=== PATIENT | female | born 1975 | race Caucasian/White ===

== ENCOUNTER 2019-11-12 14:24 | Outpatient (CLI) | payer SELFPAY ==
[2019-11-12 14:51] LABS: Basophils Percent Auto 0.5 % (0.2-1.2); Eosinophils Percent Auto 0.2 % (0-4.4); Hematocrit 41.5 % (37.0-47.0); Hemoglobin 13.5 g/dL (12.0-15.0); Immature Granulocyte Absolute 0.03 K/mm3 (0.00-0.031); Immature Granulocyte Percent A 0.4 % (0-0.5); Lymphocytes Absolute Auto 1.55 K/mm3 (0.9-3.2); Lymphocytes Percent Auto 18.6 % (18.3-44.2); Mean Corpuscular HGB Conc 32.5 g/dl (32-36); Mean Corpuscular Hemoglobin 29.7 pg (26-34); Mean Corpuscular Volume 91.4 fl (80-100); Mean Platelet Volume 9.3 fl (7.4-10.4); Monocytes Absolute Auto 0.9 K/mm3 (0.1-0.6); Neutrophils Absolute Auto 5.8 K/mm3 (1.3-6.7); Neutrophils Percent Auto 69.3 % (45.5-73.1); Platelet Count Result 315 k/mm3 (150-375); Red Blood Count 4.54 M/mm3 (4.2-5.4); Red Cell Distribution Width 12.8 % (11.5-14.5); White Blood Count 8.4 K/mm3 (4.5-10.0)
[2019-11-12 15:13] LABS: Alanine Aminotransferase 31 U/L (4-35); Albumin Level 4.6 g/dL (3.5-5.1); Alkaline Phosphatase 109 U/L (38-126); Aspartate Amino Transferase 34 U/L (14-36); Bilirubin,Total 0.4 mg/dL (0.2-1.3); Blood Urea Nitrogen 14 mg/dL (7-17); Calcium 9.9 mg/dL (8.4-10.2); Carbon Dioxide 25 mmol/L (22-30); Chloride 102 mmol/L (98-107); Estimated Glomerular Filt Rate > 60; Glucose 94 mg/dL (65-105); Sodium 139 mmol/L (137-145)
[2019-11-12 15:21] LABS: Potassium 3.8 mmol/L (3.4-5.0)
[2019-11-12 16:11] LABS: Folic Acid 15.4 ng/mL (2.76->20)
== END 2019-11-12 14:25 | disposition home or self-care (01) ==
PROVIDERS: PCP Internal Medicine; Visit Provider Psychiatry & Neurology Neurology
DX: G90.09 Other idiopathic peripheral autonomic neuropathy (principal)
CPT/HCPCS: 36415; 80053; 82607; 82746; 84443; 85025; 86038

== ENCOUNTER 2024-09-30 19:20 | Emergency (ER) | payer OTHER, SELFPAY ==
--- NOTE | ~2024-09-30 | CT_ITS ---
EXAMINATION: CTA chest PE abdomen pel DATE: 09/30/2024 20:43 GUEST SERVICE AGENT INDICATION: Right-sided back/chest/shoulder pain with nausea for which pulmonary embolus is suspected clinically. COMPARISON: Right upper quadrant ultrasound performed at less than 30 minutes earlier with negative r esults TECHNIQUE: Computed tomographic angiography (CTA) of the chest was performed, along with multiple con tiguous axial images of the abdomen and pelvis with 100 mL Omnipaque-350 intravenous contrast. The do se-length product was 1423.02 mGy-cm. Maximum intensity projection 3D-reconstructions of the aorta an d other arteries were constructed by the technologist on a separate workstation. FINDINGS/OBSERVATIONS: PULMONARY ARTERIES: No filling defect is identified within the main or proximal pulmonary artery. The main pulmonary artery is not enlarged. THORACIC AORTA: No aneurysmal dilatation or dissection is present. The great vessels are intact. LUNGS: The lungs are clear. MEDIASTINUM: No morphologically suspicious or pathologically enlarged lymph nodes are identified with in the mediastinum or bilateral axilla. BONES OF THE CHEST: No acute fracture. No significant degenerative disease. No lytic or blastic lesions. HEART: The heart is of normal size, without pericardial effusion. LIVER: The liver enhances homogeneously and is not enlarged measuring 17 cm in longitudinal dimension. GALLBLADDER AND BILIARY SYSTEM: The gallbladder is only minimally distended, and otherwise unremarkable. PANCREAS: The pancreas enhances homogeneously without ductal dilatation. SPLEEN: The spleen enhances homogeneously and is not enlarged measuring 4 cm in longitudinal dimension. KIDNEYS: The bilateral kidneys enhance symmetrically without significant hydronephrosis or renal calculi. Well-circumscribed rounded focus of decreased attenuation within the upper pole of the left kidney me asuring 16 mm in greatest dimension. This too small to characterize, but likely a simple cyst ADRENAL GLANDS: Unremarkable. GASTROINTESTINAL TRACT: Trace fecal stasis within the colon. APPENDIX: The air-filled appendix is of normal caliber (axial series, image 97) VASCULATURE: Unremarkable. No aneurysmal dilatation or significant stenosis. LYMPH NODES: No pathologically enlarged or morphologically suspicious lymph nodes within the retroperitoneum or at the root of the mesentery. PELVIC STRUCTURES: The bladder is significantly distended, and otherwise unremarkable. Anteverted and anteflexed, and otherwise unremarkable. BODY WALL AND MUSCULOSKELETAL: No significant degenerative disease within the lower thoracic or lumbosacral spine. IMPRESSION: No pulmonary embolus. No aortic dissection. The lungs are clear. No acute pathology is identified within the abdomen or pelvis, as detailed above. Reviewed, dictated and finalized at location A. T SERVICE AGENT IMPRESSION: No pulmonary embolus. No aortic dissection. The lungs are clear. No acute pathology is identified within the abdomen or pelvis, as detailed abov e.
--- NOTE | ~2024-09-30 | US_ITS ---
EXAM: ABDOMEN ULTRASOUND HISTORY: Right upper quadrant pain COMPARISON: None FINDINGS: LIVER: The liver demonstrates coarse echogenicity. The portal vein is patent demonstrating hepatopedal flow. GALLBLADDER: The gallbladder is only minimally distended, but otherwise unremarkable. No gallbladder wall thickening or pericholecystic fluid. BILE DUCTS: Common bile duct measures 2.9mm. PANCREAS: Limited evaluation of the pancreas secondary to overlying bowel gas IMPRESSION: Coarse echogenicity within the liver, a nonspecific finding. Otherwise unremarkable sonographic evaluation of the right upper quadrant, as detailed above. Reviewed, dictated and finalized at location A. ARY MEDIA TECHNICIAN IMPRESSION: Coarse echogenicity within the liver, a nonspecific finding. Otherwise unremarkable sonographic evaluation of the right upper quadrant, as d etailed above.
[2024-09-30 19:23] VITALS: BP 150/83; PULSE 108; RESP 15; TEMP 36.4; O2SAT 100
[2024-09-30] MEDS: SODIUM CHLORIDE 0.9% IV 1,000 ML 999 ML IV CONT (19:49)
[2024-09-30] MEDS: ONDANSETRON INJ 4 MG/2 ML VIAL IV PUSH (19:50)
[2024-09-30 19:54] LABS: Basophils Percent Auto 0.5 % (0.2-1.2); Eosinophils Absolute Auto 0.1 K/mm3 (0-0.3); Eosinophils Percent Auto 0.8 % (0-4.4); Hematocrit 42.9 % (37.0-47.0); Hemoglobin 14.1 g/dL (12.0-15.0); Immature Granulocyte Absolute 0.03 K/mm3 (0.00-0.031); Immature Granulocyte Percent A 0.4 % (0-0.5); Lymphocytes Absolute Auto 1.98 K/mm3 (0.9-3.2); Lymphocytes Percent Auto 25.5 % (18.3-44.2); Mean Corpuscular HGB Conc 32.9 g/dl (32-36); Mean Corpuscular Hemoglobin 30.8 pg (26-34); Mean Corpuscular Volume 93.7 fl (80-100); Mean Platelet Volume 9.2 fl (7.4-10.4); Monocytes Percent Auto 12.9 % (2.6-8.5); Neutrophils Absolute Auto 4.7 K/mm3 (1.3-6.7); Neutrophils Percent Auto 59.9 % (45.5-73.1); Platelet Count Result 280 k/mm3 (150-375); Red Blood Count 4.58 M/mm3 (4.2-5.4); Red Cell Distribution Width 12.3 % (11.5-14.5); White Blood Count 7.8 K/mm3 (4.5-10.0)
[2024-09-30 20:08] LABS: Alanine Aminotransferase 40 U/L (6-35); Alkaline Phosphatase 149 U/L (38-126); Anion Gap 11 mmol/L (4-12); Aspartate Amino Transferase 47 U/L (14-36); Bilirubin,Total 0.5 mg/dL (0.2-1.3); Blood Urea Nitrogen 19 mg/dL (7-17); Carbon Dioxide 28 mmol/L (22-30); Chloride 98 mmol/L (98-107); Estimated CRCL calculation 82 ml/min; Estimated Glomerular Filt Rate > 60; Glucose 90 mg/dL (65-110); Lipase 101 U/L (23-300); Magnesium 1.9 mg/dL (1.6-2.3); Potassium 3.4 mmol/L (3.4-5.0); Sodium 137 mmol/L (137-145)
--- NOTE | 2024-09-30 20:15 | ED.GENADULT ---
HPI - General Adult General Chief complaint: Chest Pain Stated complaint: Right shoulder to back pain Time Seen by Provider: 09/30/24 19:31 History of Present Illness HPI narrative: Patient 49-year-old female who presents emergency department with chief complaint of right-sided chest and right upper quadrant pain. The patient reports that she has been at work today and started having discomfort in the right side of her chest radiating to her back the patient reports he also had pain in the right upper quadrant reports that she had a similar episode recently and was told that she might have problems with her gallbladder. The patient also reports she has prior family history of potential blood clot to the lungs. The patient reports that she has no personal history of DVT or PE the patient reports that the sensation made her feel very anxious and felt as though she could not get a good deep breath. Related Data Allergies Allergy/AdvReac Type Severity Reaction Status Date / Time No Known Allergies Allergy Mild Verified 09/30/24 19:22 Review of Systems Review of Systems: A 10 system review of systems was completed on the patient and is negative except for what is stated in the HPI. Nursing and ancillary documentation was reviewed. [facility] Social History Social History Social History: never smoker Smoking status: Never smoker Alcohol intake: current Drinks per week: 1 Exam Narrative: GENERAL: Well-appearing, well-nourished, and in no acute distress. HEAD: Normocephalic, atraumatic. EYES: PERRLA and EOMI. ENT: Nares clear, no rhinorrhea or epistaxis. Mucous membranes moist. NECK: Supple. CHEST: Clear to auscultation. No respiratory distress. HEART: Regular rate and rhythm. No murmur heard. Normal peripheral pulses. ABDOMEN: Soft, mild tenderness to palpation in right upper quadrant, nondistended, normal active bowel sounds. EXTREMITIES: Normal range of motion. No edema. SKIN: Warm, dry, no rash. NEURO: No focal deficits. Alert and oriented x3. PSYCH: Normal mood and affect. Course Vital Signs Vital signs: Vital Signs Temperature 36.4 C 09/30/24 19:23 Pulse Rate 108 H 09/30/24 19:23 Respiratory Rate 15 09/30/24 19:23 Blood Pressure 150/83 H 09/30/24 19:23 Pulse Oximetry 100 09/30/24 19:23 Oxygen Delivery Room Air 09/30/24 19:23 Temperature 36.4 C 09/30/24 19:23 Pulse Rate 108 H 09/30/24 19:23 Respiratory Rate 15 09/30/24 19:23 Blood Pressure 150/83 H 09/30/24 19:23 Pulse Oximetry 100 09/30/24 19:23 Oxygen Delivery Room Air 09/30/24 19:23 Medical Decision Making MDM Narrative Medical decision making narrative: Differential diagnosis includes biliary colic, PE, ACS Given the patient's family history for pulmonary embolism a PE study was ordered. Patient did have tenderness to palpation the right upper quadrant a gallbladder ultrasound was obtained as well as a CT scan included abdomen pelvis laboratory studies did show a slight elevation of the transaminases with an AST of 47 and ALT of 40 alk phos was 149 bilirubin was normal at 0.5 lipase was normal at 101 CTA chest with abdomen pelvis showed No pulmonary embolus. No aortic dissection. The lungs are clear. No acute pathology is identified within the abdomen or pelvis, as detailed above. Gallbladder ultrasound showed Coarse echogenicity within the liver, a nonspecific finding. Otherwise unremarkable sonographic evaluation of the right upper quadrant, as detailed above. Vital Signs Vital Signs: Vital Signs Temperature 36.4 C 09/30/24 19:23 Pulse Rate 108 H 09/30/24 19:23 Respiratory Rate 15 09/30/24 19:23 Blood Pressure 150/83 H 09/30/24 19:23 Pulse Oximetry 100 09/30/24 19:23 Oxygen Delivery Room Air 09/30/24 19:23 Temperature 36.4 C 09/30/24 19:23 Pulse Rate 108 H 09/30/24 19:23 Respiratory Rate 15 09/30/24 19:23 Blood Pressure 150/83 H 09/30/24 19:23 Pulse Oximetry 100 09/30/24 19:23 Oxygen Delivery Room Air 09/30/24 19:23 Lab Data 09/30/24 19:47 09/30/24 19:47 Labs: Lab Results 09/30/24 09/30/24 09/30/24 Range/Units 19:47 19:47 19:47 WBC 7.8 (4.5-10.0) K/mm3 RBC 4.58 (4.2-5.4) M/mm3 Hgb 14.1 (12.0-15.0) g/dL Hct 42.9 (37.0-47.0) % MCV 93.7 (80-100) fl MCH 30.8 (26-34) pg MCHC 32.9 (32-36) g/dl RDW 12.3 (11.5-14.5) % Plt Count 280 (150-375) k/mm3 MPV 9.2 (7.4-10.4) fl Immature Gran % (Auto) 0.4 (0-0.5) % Neut % (Auto) 59.9 (45.5-73.1) % Lymph % (Auto) 25.5 (18.3-44.2) % [place] % (Auto) 12.9 H (2.6-8.5) % Eos % (Auto) 0.8 (0-4.4) % Baso % (Auto) 0.5 (0.2-1.2) % Lymph # (Auto) 1.98 (0.9-3.2) K/mm3 [place] # (Auto) 1.0 H (0.1-0.6) K/mm3 Eos # (Auto) 0.1 (0-0.3) K/mm3 Baso # (Auto) 0.0 (0.0-0.1) K/mm3 Abs Immat Gran (auto) 0.03 (0.00-0.031) K/mm3 Absolute Neuts (auto) 4.7 (1.3-6.7) K/mm3 Absolute Nucleated RBC 0.000 (0.0-0.012) K/mm3 Nucleated RBC % 0.0 (0.0-0.2) % Sodium Cancelled 137 Potassium Cancelled 3.4 Chloride Cancelled Carbon Dioxide Anion Gap BUN Creatinine Estim Creat Clear Calc Estimated GFR Glucose Calcium Magnesium (1.6-2.3) mg/dL Total Bilirubin AST ALT Alkaline Phosphatase Troponin I (0.000-0.034) ng/mL NT-Pro-B Natriuret Pep Total Protein Albumin Lipase Urine Color (Yellow) Urine Appearance (Clear) Urine pH (5.0-9.0) Ur Specific [place] (1.001-1.035) Urine Protein (Negative) mg/dL Urine Glucose (UA) (Negative) mg/dL Urine Ketones (Negative) mg/dL Ur Blood (Man) (Negative) Urine Nitrate (Negative) Urine Bilirubin (Negative) Urine Urobilinogen (<2.0) mg/dL Leukocyte Esterase Rfl (Negative) GABRIEL/UL 09/30/24 09/30/24 09/30/24 Range/Units 19:47 19:47 19:47 WBC (4.5-10.0) K/mm3 RBC (4.2-5.4) M/mm3 Hgb (12.0-15.0) g/dL Hct (37.0-47.0) % MCV (80-100) fl MCH (26-34) pg MCHC (32-36) g/dl RDW (11.5-14.5) % Plt Count (150-375) k/mm3 MPV (7.4-10.4) fl Immature Gran % (Auto) (0-0.5) % Neut % (Auto) (45.5-73.1) % Lymph % (Auto) (18.3-44.2) % [place] % (Auto) (2.6-8.5) % Eos % (Auto) (0-4.4) % Baso % (Auto) (0.2-1.2) % Lymph # (Auto) (0.9-3.2) K/mm3 [place] # (Auto) (0.1-0.6) K/mm3 Eos # (Auto) (0-0.3) K/mm3 Baso # (Auto) (0.0-0.1) K/mm3 Abs Immat Gran (auto) (0.00-0.031) K/mm3 Absolute Neuts (auto) (1.3-6.7) K/mm3 Absolute Nucleated RBC (0.0-0.012) K/mm3 Nucleated RBC % (0.0-0.2) % Sodium Potassium Chloride 98 Carbon Dioxide Cancelled 28 Anion Gap Cancelled 11 BUN Cancelled Creatinine Estim Creat Clear Calc Estimated GFR Glucose Calcium Magnesium (1.6-2.3) mg/dL Total Bilirubin AST ALT Alkaline Phosphatase Troponin I (0.000-0.034) ng/mL NT-Pro-B Natriuret Pep Total Protein Albumin Lipase Urine Color (Yellow) Urine Appearance (Clear) Urine pH (5.0-9.0) Ur Specific [place] (1.001-1.035) Urine Protein (Negative) mg/dL Urine Glucose (UA) (Negative) mg/dL Urine Ketones (Negative) mg/dL Ur Blood (Man) (Negative) Urine Nitrate (Negative) Urine Bilirubin (Negative) Urine Urobilinogen (<2.0) mg/dL Leukocyte Esterase Rfl (Negative) GABRIEL/UL 09/30/24 09/30/24 09/30/24 Range/Units 19:47 19:47 19:47 WBC (4.5-10.0) K/mm3 RBC (4.2-5.4) M/mm3 Hgb (12.0-15.0) g/dL Hct (37.0-47.0) % MCV (80-100) fl MCH (26-34) pg MCHC (32-36) g/dl RDW (11.5-14.5) % Plt Count (150-375) k/mm3 MPV (7.4-10.4) fl Immature Gran % (Auto) (0-0.5) % Neut % (Auto) (45.5-73.1) % Lymph % (Auto) (18.3-44.2) % [place] % (Auto) (2.6-8.5) % Eos % (Auto) (0-4.4) % Baso % (Auto) (0.2-1.2) % Lymph # (Auto) (0.9-3.2) K/mm3 [place] # (Auto) (0.1-0.6) K/mm3 Eos # (Auto) (0-0.3) K/mm3 Baso # (Auto) (0.0-0.1) K/mm3 Abs Immat Gran (auto) (0.00-0.031) K/mm3 Absolute Neuts (auto) (1.3-6.7) K/mm3 Absolute Nucleated RBC (0.0-0.012) K/mm3 Nucleated RBC % (0.0-0.2) % Sodium Potassium Chloride Carbon Dioxide Anion Gap BUN 19 H Creatinine Cancelled 0.78 Estim Creat Clear Calc Cancelled 82 Estimated GFR Cancelled Glucose Calcium Magnesium (1.6-2.3) mg/dL Total Bilirubin AST ALT Alkaline Phosphatase Troponin I (0.000-0.034) ng/mL NT-Pro-B Natriuret Pep Total Protein Albumin Lipase Urine Color (Yellow) Urine Appearance (Clear) Urine pH (5.0-9.0) Ur Specific [place] (1.001-1.035) Urine Protein (Negative) mg/dL Urine Glucose (UA) (Negative) mg/dL Urine Ketones (Negative) mg/dL Ur Blood (Man) (Negative) Urine Nitrate (Negative) Urine Bilirubin (Negative) Urine Urobilinogen (<2.0) mg/dL Leukocyte Esterase Rfl (Negative) GABRIEL/UL 09/30/24 09/30/24 09/30/24 Range/Units 19:47 19:47 19:47 WBC (4.5-10.0) K/mm3 RBC (4.2-5.4) M/mm3 Hgb (12.0-15.0) g/dL Hct (37.0-47.0) % MCV (80-100) fl MCH (26-34) pg MCHC (32-36) g/dl RDW (11.5-14.5) % Plt Count (150-375) k/mm3 MPV (7.4-10.4) fl Immature Gran % (Auto) (0-0.5) % Neut % (Auto) (45.5-73.1) % Lymph % (Auto) (18.3-44.2) % [place] % (Auto) (2.6-8.5) % Eos % (Auto) (0-4.4) % Baso % (Auto) (0.2-1.2) % Lymph # (Auto) (0.9-3.2) K/mm3 [place] # (Auto) (0.1-0.6) K/mm3 Eos # (Auto) (0-0.3) K/mm3 Baso # (Auto) (0.0-0.1) K/mm3 Abs Immat Gran (auto) (0.00-0.031) K/mm3 Absolute Neuts (auto) (1.3-6.7) K/mm3 Absolute Nucleated RBC (0.0-0.012) K/mm3 Nucleated RBC % (0.0-0.2) % Sodium Potassium Chloride Carbon Dioxide Anion Gap BUN Creatinine Estim Creat Clear Calc Estimated GFR > 60 Glucose Cancelled 90 Calcium Cancelled 10.0 Magnesium 1.9 (1.6-2.3) mg/dL Total Bilirubin Cancelled AST ALT Alkaline Phosphatase Troponin I (0.000-0.034) ng/mL NT-Pro-B Natriuret Pep Total Protein Albumin Lipase Urine Color (Yellow) Urine Appearance (Clear) Urine pH (5.0-9.0) Ur Specific [place] (1.001-1.035) Urine Protein (Negative) mg/dL Urine Glucose (UA) (Negative) mg/dL Urine Ketones (Negative) mg/dL Ur Blood (Man) (Negative) Urine Nitrate (Negative) Urine Bilirubin (Negative) Urine Urobilinogen (<2.0) mg/dL Leukocyte Esterase Rfl (Negative) GABRIEL/UL 09/30/24 09/30/24 09/30/24 Range/Units 19:47 19:47 19:47 WBC (4.5-10.0) K/mm3 RBC (4.2-5.4) M/mm3 Hgb (12.0-15.0) g/dL Hct (37.0-47.0) % MCV (80-100) fl MCH (26-34) pg MCHC (32-36) g/dl RDW (11.5-14.5) % Plt Count (150-375) k/mm3 MPV (7.4-10.4) fl Immature Gran % (Auto) (0-0.5) % Neut % (Auto) (45.5-73.1) % Lymph % (Auto) (18.3-44.2) % [place] % (Auto) (2.6-8.5) % Eos % (Auto) (0-4.4) % Baso % (Auto) (0.2-1.2) % Lymph # (Auto) (0.9-3.2) K/mm3 [place] # (Auto) (0.1-0.6) K/mm3 Eos # (Auto) (0-0.3) K/mm3 Baso # (Auto) (0.0-0.1) K/mm3 Abs Immat Gran (auto) (0.00-0.031) K/mm3 Absolute Neuts (auto) (1.3-6.7) K/mm3 Absolute Nucleated RBC (0.0-0.012) K/mm3 Nucleated RBC % (0.0-0.2) % Sodium Potassium Chloride Carbon Dioxide Anion Gap BUN Creatinine Estim Creat Clear Calc Estimated GFR Glucose Calcium Magnesium (1.6-2.3) mg/dL Total Bilirubin 0.5 AST Cancelled 47 H ALT Cancelled 40 H Alkaline Phosphatase Cancelled Troponin I (0.000-0.034) ng/mL NT-Pro-B Natriuret Pep Total Protein Albumin Lipase Urine Color (Yellow) Urine Appearance (Clear) Urine pH (5.0-9.0) Ur Specific [place] (1.001-1.035) Urine Protein (Negative) mg/dL Urine Glucose (UA) (Negative) mg/dL Urine Ketones (Negative) mg/dL Ur Blood (Man) (Negative) Urine Nitrate (Negative) Urine Bilirubin (Negative) Urine Urobilinogen (<2.0) mg/dL Leukocyte Esterase Rfl (Negative) GABRIEL/UL 09/30/24 09/30/24 09/30/24 Range/Units 19:47 19:47 19:47 WBC (4.5-10.0) K/mm3 RBC (4.2-5.4) M/mm3 Hgb (12.0-15.0) g/dL Hct (37.0-47.0) % MCV (80-100) fl MCH (26-34) pg MCHC (32-36) g/dl RDW (11.5-14.5) % Plt Count (150-375) k/mm3 MPV (7.4-10.4) fl Immature Gran % (Auto) (0-0.5) % Neut % (Auto) (45.5-73.1) % Lymph % (Auto) (18.3-44.2) % [place] % (Auto) (2.6-8.5) % Eos % (Auto) (0-4.4) % Baso % (Auto) (0.2-1.2) % Lymph # (Auto) (0.9-3.2) K/mm3 [place] # (Auto) (0.1-0.6) K/mm3 Eos # (Auto) (0-0.3) K/mm3 Baso # (Auto) (0.0-0.1) K/mm3 Abs Immat Gran (auto) (0.00-0.031) K/mm3 Absolute Neuts (auto) (1.3-6.7) K/mm3 Absolute Nucleated RBC (0.0-0.012) K/mm3 Nucleated RBC % (0.0-0.2) % Sodium Potassium Chloride Carbon Dioxide Anion Gap BUN Creatinine Estim Creat Clear Calc Estimated GFR Glucose Calcium Magnesium (1.6-2.3) mg/dL Total Bilirubin AST ALT Alkaline Phosphatase 149 H Troponin I < 0.012 Pending (0.000-0.034) ng/mL NT-Pro-B Natriuret Pep Cancelled < 20 Total Protein Cancelled Albumin Lipase Urine Color (Yellow) Urine Appearance (Clear) Urine pH (5.0-9.0) Ur Specific [place] (1.001-1.035) Urine Protein (Negative) mg/dL Urine Glucose (UA) (Negative) mg/dL Urine Ketones (Negative) mg/dL Ur Blood (Man) (Negative) Urine Nitrate (Negative) Urine Bilirubin (Negative) Urine Urobilinogen (<2.0) mg/dL Leukocyte Esterase Rfl (Negative) GABRIEL/UL 09/30/24 09/30/24 09/30/24 Range/Units 19:47 19:47 19:47 WBC (4.5-10.0) K/mm3 RBC (4.2-5.4) M/mm3 Hgb (12.0-15.0) g/dL Hct (37.0-47.0) % MCV (80-100) fl MCH (26-34) pg MCHC (32-36) g/dl RDW (11.5-14.5) % Plt Count (150-375) k/mm3 MPV (7.4-10.4) fl Immature Gran % (Auto) (0-0.5) % Neut % (Auto) (45.5-73.1) % Lymph % (Auto) (18.3-44.2) % [place] % (Auto) (2.6-8.5) % Eos % (Auto) (0-4.4) % Baso % (Auto) (0.2-1.2) % Lymph # (Auto) (0.9-3.2) K/mm3 [place] # (Auto) (0.1-0.6) K/mm3 Eos # (Auto) (0-0.3) K/mm3 Baso # (Auto) (0.0-0.1) K/mm3 Abs Immat Gran (auto) (0.00-0.031) K/mm3 Absolute Neuts (auto) (1.3-6.7) K/mm3 Absolute Nucleated RBC (0.0-0.012) K/mm3 Nucleated RBC % (0.0-0.2) % Sodium Potassium Chloride Carbon Dioxide Anion Gap BUN Creatinine Estim Creat Clear Calc Estimated GFR Glucose Calcium Magnesium (1.6-2.3) mg/dL Total Bilirubin AST ALT Alkaline Phosphatase Troponin I (0.000-0.034) ng/mL NT-Pro-B Natriuret Pep Total Protein 9.0 H Albumin Cancelled 5.0 Lipase Cancelled 101 Urine Color (Yellow) Urine Appearance (Clear) Urine pH (5.0-9.0) Ur Specific [place] (1.001-1.035) Urine Protein (Negative) mg/dL Urine Glucose (UA) (Negative) mg/dL Urine Ketones (Negative) mg/dL Ur Blood (Man) (Negative) Urine Nitrate (Negative) Urine Bilirubin (Negative) Urine Urobilinogen (<2.0) mg/dL Leukocyte Esterase Rfl (Negative) GABRIEL/UL 09/30/24 Range/Units 20:33 WBC (4.5-10.0) K/mm3 RBC (4.2-5.4) M/mm3 Hgb (12.0-15.0) g/dL Hct (37.0-47.0) % MCV (80-100) fl MCH (26-34) pg MCHC (32-36) g/dl RDW (11.5-14.5) % Plt Count (150-375) k/mm3 MPV (7.4-10.4) fl Immature Gran % (Auto) (0-0.5) % Neut % (Auto) (45.5-73.1) % Lymph % (Auto) (18.3-44.2) % [place] % (Auto) (2.6-8.5) % Eos % (Auto) (0-4.4) % Baso % (Auto) (0.2-1.2) % Lymph # (Auto) (0.9-3.2) K/mm3 [place] # (Auto) (0.1-0.6) K/mm3 Eos # (Auto) (0-0.3) K/mm3 Baso # (Auto) (0.0-0.1) K/mm3 Abs Immat Gran (auto) (0.00-0.031) K/mm3 Absolute Neuts (auto) (1.3-6.7) K/mm3 Absolute Nucleated RBC (0.0-0.012) K/mm3 Nucleated RBC % (0.0-0.2) % Sodium Potassium Chloride Carbon Dioxide Anion Gap BUN Creatinine Estim Creat Clear Calc Estimated GFR Glucose Calcium Magnesium (1.6-2.3) mg/dL Total Bilirubin AST ALT Alkaline Phosphatase Troponin I (0.000-0.034) ng/mL NT-Pro-B Natriuret Pep Total Protein Albumin Lipase Urine Color Yellow (Yellow) Urine Appearance Clear (Clear) Urine pH 6.0 (5.0-9.0) Ur Specific [place] 1.012 (1.001-1.035) Urine Protein Negative (Negative) mg/dL Urine Glucose (UA) Negative (Negative) mg/dL Urine Ketones Negative (Negative) mg/dL Ur Blood (Man) Negative (Negative) Urine Nitrate Negative (Negative) Urine Bilirubin Negative (Negative) Urine Urobilinogen 0.2 (<2.0) mg/dL Leukocyte Esterase Rfl Negative (Negative) GABRIEL/UL Discharge Plan Discharge Clinical Impression: Right upper quadrant abdominal pain, Right-sided chest pain Patient Disposition: Home, Self-Care Condition: Stable Instructions: Antibiotic Form, Chest Pain (ED), Abdominal Pain (ED) Additional Instructions: Please follow-up your primary care provider if you have worsening symptoms please be re-evaluated. It is recommended if he continued to have episodes of right upper quadrant pain you may need further testing that could include a HIDA scan Patient Language: Mohawk Prescriptions: No Action topiramate 25 mg tablet 25 mg PO BID Qty: 60 0RF venlafaxine 150 mg tablet extended release 24hr 150 mg PO DAILY Qty: 30 0RF dextroamphetamine-amphetamine [Adderall XR] 20 mg capsule,extended release 24hr 20 mg PO DAILY MDD ADD Qty: 30 0RF venlafaxine 75 mg capsule,extended release 24hr See Rx Instructions .ROUTE .COMPLEX Qty: 30 2RF Dose Instruction: TAKE ONE CAPSULE BY MOUTH DAILY ALONG WITH 150 MG CAPSULE FOR A TOTAL DAILY DOSE OF 225 MG. Rx Instructions: TAKE ONE CAPSULE BY MOUTH DAILY ALONG WITH 150 MG CAPSULE FOR A TOTAL DAILY DOSE OF 225 MG. Follow-up/Referrals: Aubrie Marinelli DO [Physician] - PHYSICIAN,ROLL[employer] M[employer] OPERATOR [Primary Care Provider] - Time of Disposition: 21:13 Quality HEART score for chest pain patients History: slightly suspicious ECG: normal Age: > 45 and < 65 years Risk factors: 1 or 2 risk factors Troponin: < or = to 1x normal limit Heart score: 2
[2024-09-30 20:20] LABS: NT Pro B Type Natriuretic Pept < 20 pg/mL (19.9-100); Troponin I < 0.012 ng/mL (0.000-0.034)
[2024-09-30 20:49] LABS: Add Urine Microscopic? NO; Appearance Urine Clear (Clear); Bilirubin Urine Negative (Negative); Blood Urine Negative (Negative); Color Urine Yellow (Yellow); Glucose Urine UA Negative (Negative); Ketones Urine Negative (Negative); Leukocyte Esterase Ur Negative LEU/UL (Negative); Nitrate Urine Negative (Negative); Protein Urine Negative (Negative); Specific Grav Ur 1.012 (1.001-1.035); Urobilinogen Urine 0.2 mg/dL (<2.0)
[2024-09-30 21:37] VITALS: BP 115/41; PULSE 95; RESP 20; TEMP 36.6; O2SAT 97
--- OUTSIDE RECORDS SUMMARY | 2024-10-02 03:39 | XMS_ITS | Encounter Summary ---
Author Organization [facility] Address [address] [place] [address]. [place], [place] [id number] [place] [id number] Care Team Providers Care Detector Car Operator Name Role Phone Shanice Chirinos MD Primary Care Provider + Ge Hook MD Unavailable Encounter Details Date Type Department Care Team (Late st Contact Info) Description 06/23/2021 Avito.rut Message Enc [facility] Diabetes and Endocrinology - [place] [id number] [place] [address] Daren Sales MD RE: Question Social History Tobacco Use Types Packs/Day Years Used Date Smoking Tobacco: Never Smokeless Tobacco: Never Alcohol Use Standard Drinks/Week Comments Not Currently 0 (1 standard drink = 0.6 oz pur e alcohol) PHQ-2 Answer Date Recorded PHQ-2 Score - If the patient scores above 3, please move on to questions 3-9 0 05/08/2021 Comments No Sex and Gender Information Value Date Recorded Sex Assigned at Not on file Legal Sex Female 10:32 PM CDT Gender Identity Female 09/19/2021 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 No / Unsure 06/26/2021 8:31 AM CDT documented as of this encounter Functional Status * RETIRED Are you deaf or do you have serious difficulty hearing Answer Date of Assessment Author Status No 05/02/2021 2:04 PM CDT Activ e * RETIRED Are you blind or do you have serious difficulty seeing, even when wearing glasses? Answer Date of Assessment Author Status No 05/02/2021 2:04 PM CDT Activ e * Do you have serious difficulty walking or climbing stairs? Answer Date of Assessment Author Status No 05/02/2021 2:04 PM CDT David Mccormack RN Active * Do you have difficulty dressing or bathing? Answer Date of Assessment Author Status No 05/02/2021 2:04 PM CDT David Mccormack RN Active * Because of a physical, mental, or emotional condition, do you have difficulty doing errands alone such as visiting a doctor's office or shopping? Answer Date of Assessment Author Status No 05/02/2021 2:04 PM CDT David Mccormack RN Active documented as of this encounter Mental Status * Because of a physical, mental, or emotional condition, do you have serious difficulty concentrating, remembering, or making decisions? Answer Entry Date Author Status No 05/02/2021 2:04 PM CDT David Mccormack RN Active documented in this encounter Plan of Treatment Not on file documented as of this encounter Goals Goal Patient Goal Type Associated Problems Recent Progress Patient-Stated? Author Health - patient able to perform ADLs independently General No Stevenson Mosqueda RN documented as of this encounter Visit Diagnoses Not on filedocumented in this encounter Additional Health Concerns Assessment Noted Time PHQ-9 Depression Total Score: 0 05/08/20 21 12:54 PM CDT documented as of this encounter Care Teams Detector Car Operator Relationship Specialty Start Date End Date Shanice Chirinos MD [address] [place] [address] PCP - General FAMILY PRACTICE 04/17/21 Ge Hook MD [address] [place] [address] Referring Physician ENDOCRINOLOGY 05/02/21 06/02/22 documented as of this encounter
--- OUTSIDE RECORDS SUMMARY | 2024-10-02 03:39 | XMS_ITS | Encounter Summary ---
Author Organization [facility] Address [address] [place] [address]. [place] [address] [place] [address] Care Team Providers Care Recruitment Internship Name Role Phone Shanice Chirinos MD Primary Care Provider + Encounter Details Date Type Department Care Team ([facility] st Contact Info) Description 08/28/2022 [employer] Message [facility] Patient Accounts [address] [place] [address] [facility] Provider Monthly Credit Card Payment Social History Tobacco Use Types Packs/Day Years Used Date Smoking Tobacco: Never Smokeless Tobacco: Never Alcohol Use Standard Drinks/Week Comments Yes 0 (1 standard drink = 0.6 oz pur e alcohol) very little PHQ-2 Answer Date Recorded PHQ-2 Score - If the patient scores above 3, please move on to questions 3-9 0 09/21/2021 Comments No Sex and Gender Information Value Date Recorded Sex Assigned at Not on file Legal Sex Female 10:32 PM CDT Gender Identity Female 09/19/2021 2:14 PM COCOA MILL OPERATOR Sexual Orientation Straight 09/19/2021 2: 14 PM COCOA MILL OPERATOR 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 Answer Date of Assessment Author Status No 05/02/2021 2:04 PM David Aguayo RN Active * Because of a physical, mental, or emotional condition, do you have difficulty doing errands alone such as visiting a doctor's office or shopping? Answer Date of Assessment Author Status No 05/02/2021 2:04 PM David Aguayo RN Active documented as of this encounter Mental Status * Because of a physical, mental, or emotional condition, do you have serious difficulty concentrating, remembering, or making decisions? Answer Entry Date Author Status No 05/02/2021 2:04 PM David Aguayo RN Active documented in this encounter Plan [...] Noted Time PHQ-9 Depression Total Score: 0 09/21/19 22 3:57 PM COCOA MILL OPERATOR documented as of this encounter Care Teams Recruitment Internship Relationship Specialty Start Date End Date Shanice Chirinos MD [facility] [place] [address] PCP - General FAMILY PRACTICE 04/17/21 documented as of this encounter
--- OUTSIDE RECORDS SUMMARY | 2024-10-02 03:39 | XMS_ITS | Encounter Summary ---
Author Organization [facility] Address [address] [place] [address]. [place], [place] [address] [place] [address] Care Team Providers Care Plumber Apprentice Name Role Phone Shanice Chirinos MD Primary Care Provider + Ge Hook MD Unavailable Encounter Details Date Type Department Care Team (Latest Contact Info) Description 12/04/2021 [employer]efrek Inct Message Enc [facility] Medical Group Diabetes and Endocrinology - [place] [address] [place] [address] Daren Sales MD Current bloodwork from primary Social History Tobacco Use Types Packs/Day Years [...] CDT Gender Identity Female 09/19/2021 2:14 PM AVIATION ELECTRICIAN Sexual Orientation Straight 09/19/2021 2: 14 PM AVIATION ELECTRICIAN COVID-19 Exposure Response Date Recorded In the last 10 days, have yo u been in contact with someone who was confirmed or suspected to have Coronavirus/COVID-19? No / Unsure 12/01/2021 4:35 PM CDT documented as of this encounter Functional [...] Total Score: 0 09/21/19 22 3:57 PM AVIATION ELECTRICIAN documented as of this encounter Care Teams Plumber Apprentice Relationship Specialty Start Date End Date Shanice Chirinos MD [address] [place] [address] PCP - General FAMILY PRACTICE 04/17/21 Ge Hook MD [address] [place] [address] Referring Physician ENDOCRINOLOGY 05/02/21 06/02/22 documented as of this encounter
--- OUTSIDE RECORDS SUMMARY | 2024-10-02 03:39 | XMS_ITS | Encounter Summary ---
Author Organization [facility] Address [address] [place] [address]. [place], [place] [address] [place] [address] Care Team Providers Care Show Host Or Hostess Name Role Phone Shanice Chirinos MD Primary Care Provider + Ge Hook MD Unavailable Encounter Details Date Type Department Care Team (Late st Contact Info) Description 12/04/2021 MyChart Message Enc [facility] Medical Group Diabetes and Endocrinology - [place] [address] [place] [address] Daren Sales MD continuted Social History Tobacco Use Types Packs/Day Years [...] CDT Gender Identity Female 09/19/2021 2:14 PM ROLL UP OPERATOR Sexual Orientation Straight 09/19/2021 2: 14 PM ROLL UP OPERATOR COVID-19 Exposure Response Date Recorded In the [...] Total Score: 0 09/21/19 22 3:57 PM ROLL UP OPERATOR documented as of this encounter Care Teams Show Host Or Hostess Relationship Specialty Start Date End Date Shanice Chirinos MD [address] [place] [address] PCP - General FAMILY PRACTICE 04/17/21 Ge Hook MD [address] [place] [address] Referring Physician ENDOCRINOLOGY 05/02/21 06/02/22 documented as of this encounter
--- OUTSIDE RECORDS SUMMARY | 2024-10-02 03:39 | XMS_ITS | Encounter Summary ---
Author Organization [facility] Address [address] [place] [address]. [place], [place] [address] [place] [address] Care Team Providers Care Surveillance Agent Name Role Phone Shanice Chirinos MD Primary Care Provider + Ge Hook MD Unavailable Encounter Details Date Type Department Care Team (Late st Contact Info) Description 06/26/2021 Therapy Plan [facility] [address] [place] [address] Daren Sales MD Social History Tobacco Use Types Packs/Day Years [...] CDT Gender Identity Female 09/19/2021 2:14 PM TECHNICAL AID Sexual Orientation Straight 09/19/2021 2: 14 PM TECHNICAL AID COVID-19 Exposure Response Date Recorded In the last month, have you been in contact with someone who was confirmed or suspected to have Coronavirus / COVID-19? No / Unsure 06/29/2021 7:05 AM CDT documented as of this encounter [...] able to perform ADLs independently General No David wynn r, Stevenson Mcdonough RN documented as of this encounter Visit Diagnoses Diagnosis Adrenal insufficiency ([facility])- Primary Glucocorticoid deficiency documented in this encounter Additional Health Concerns Assessment Noted Time PHQ-9 Depression Total Score: 0 05/08/20 21 12:54 PM CDT documented as of this encounter Care Teams Surveillance Agent Relationship Specialty Start Date End Date Shanice Chirinos MD [address] [place] [address] PCP - General FAMILY PRACTICE 04/17/21 Ge Hook MD [address] [place] [address] Referring Physician ENDOCRINOLOGY 05/02/21 06/02/22 documented as of this encounter
--- OUTSIDE RECORDS SUMMARY | 2024-10-02 03:39 | XMS_ITS | Encounter Summary ---
Author Organization [facility] Address [address] [place] [address]. [place], [place] [address] [place] [address] Care Team Providers Care Director Sales And Marketing Name Role Phone Shanice Chirions MD Primary Care Provider + Ge Hook MD Unavailable Encounter Details Date Type Department Care Team (Late st Contact Info) Description 09/18/2021 MyCTychet Message Enc [facility] Medical Group Diabetes and Endocrinology - [place] [address] [facility] [place] [address] Daren Sales MD Blood work Social History Tobacco Use Types Packs/Day Years [...] CDT Gender Identity Female 09/19/2021 2:14 PM CORPORATE FITNESS PROGRAM COORDINATOR Sexual Orientation Straight 09/19/2021 2: 14 PM CORPORATE FITNESS PROGRAM COORDINATOR COVID-19 Exposure Response Date Recorded In the last month, have you been in contact with someone who was confirmed or suspected to have Coronavirus / COVID-19? No / Unsure 09/21/2021 3:52 PM CORPORATE FITNESS PROGRAM COORDINATOR documented as of this encounter Functional Status [...] Author Status No 05/02/2021 2:04 PM CDT Daivd Mccormack RN Active * Do you have [...] to perform ADLs independently General No David li, Stevenson Mcdonough RN documented as of this encounter Visit Diagnoses Not on filedocumented in this encounter Additional Health Concerns Assessment Noted Time PHQ-9 Depression Total Score: 0 05/08/20 21 12:54 PM CDT documented as of this encounter Care Teams Director Sales And Marketing Relationship Specialty Start Date End Date Shanice Chirinos MD [address] [place] [address] PCP - General FAMILY PRACTICE 04/17/21 Ge Hook MD [address] [place] [address] Referring Physician ENDOCRINOLOGY 05/02/21 06/02/22 documented as of this encounter
--- OUTSIDE RECORDS SUMMARY | 2024-10-02 03:39 | XMS_ITS | Encounter Summary ---
Author Organization [facility] Address [address] [place] [address]. [place] [address] [place] [address] Care Team Providers Care 3Rd Pressman Name Role Phone Shanice Chirinos MD Primary Care Provider + Encounter Details Date Type Department Care Team ([facility] st Contact Info) Description 07/30/2022 [employer] Message [facility] Patient Accounts [address] [place] [address] [facility] Provider Monthly Credit Card Payment Social [...] CDT Gender Identity Female 09/19/2021 2:14 PM SALVAGER HELPER Sexual Orientation Straight 09/19/2021 2: 14 PM SALVAGER HELPER Occupation Industry Job Start Date Job End [...] Total Score: 0 09/21/19 22 3:57 PM SALVAGER HELPER documented as of this encounter Care Teams 3Rd Pressman Relationship Specialty Start Date End Date Shanice Chirinos MD [facility] [place] [address] PCP - General FAMILY PRACTICE 04/17/21 documented as of this encounter
--- OUTSIDE RECORDS SUMMARY | 2024-10-02 03:39 | XMS_ITS | Clinical Summary ---
Author Organization [facility] Address [address] [place] [address]. [place], [place] [address] [place] [address] Care Team Providers Care Director Immunology Name Role Phone Shanice Chirinos MD Primary Care Provider + Allergies No known active allergies Medications venlafaxine XR 150 MG 24 hr capsule Take 1 capsule (150 mg total) by mouth daily. 02/18/2021 Active LINZESS 145 MCG capsule Take 1 capsule (145 mcg total) by mouth daily. 10/15/2022 Active sertraline (ZOLOFT) 100 MG tablet Take 1.5 tablets (150 mg total) by mouth daily. 08/14/2023 Active levothyroxine (SYNTHROID) 50 MCG tablet TAKE 1 TABLET BY MOUTH ONCE DAILY THEN TAKE 2 TABLETS ON Saturday07/05/2023 Active azithromycin (ZITHROMAX) 250 MG tabletIndicatio ns:Non-recurren t acute serous otitis media of left ear Take 2 tablets by mouth on day one then 1 daily for four days. 6 tablet 09/04/2023 Active methylPREDNISol one, AMBREEN, (MEDROL DOSEPAK) 4 MG tabletIndicatio ns:Non-recurren t acute serous otitis media of left ear 6 TABLETS ON DAY ONE, 5 TABLETS DAY TWO, 4 TABLETS DAY THREE, 3 TABLETS DAY FOUR, 2 TABLETS DAY FIVE, AND 1 TABLET DAY SIX 1 each 09/04/2023 Active fluticasone propionate (FLONASE) 50 MCG/ACT nasal sprayIndication s:Non-recurrent acute serous otitis media of left ear,Wheezing,Br onchitis 1 spray by Nasal route daily. 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 Adrenal insufficiency ([facility]) 05/02/20 21 COVID-19 04/17/2021 Abnormal mammogram 05/30/2016 Depression 10/20/2014 Vitamin B12 deficiency 08/12/2013 Family History Medical History Relation Comments COPD Father Cancer Father prostate Cancer Paternal Grandfather Relation Status Comments Father Alive Mother Paternal Grandfather Sister Alive Social History Tobacco Use Types Packs/Day Years Used Date Smoking Tobacco: Never Passive Smoke Exposure: Never Smokeless Tobacco: Never Tobacco Cessation:Counseling Given: No Alcohol Use Standard Drinks/Week Comments Yes 0 [...] CDT Gender Identity Female 09/19/2021 2:14 PM MANNEQUIN COLORING ARTIST Sexual Orientation Straight 09/19/2021 2: 14 PM MANNEQUIN COLORING ARTIST 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 Not on file Not on file Not on file Last Filed Vital Signs Vital Sign Reading Time Taken Comments Blood Pressure 131/81 09/04/2023 3:01 PM MANNEQUIN COLORING ARTIST Pulse 88 09/04/2023 3:01 PM MANNEQUIN COLORING ARTIST Temperature 36.7 ??C (98 ??F) 09/04/2023 3:01 PM MANNEQUIN COLORING ARTIST Respiratory Rate 18 09/04/2023 3:01 PM MANNEQUIN COLORING ARTIST Oxygen Saturation 98% 09/04/2023 3:01 PM MANNEQUIN COLORING ARTIST Inhaled Oxygen Concentration - - Weight 80.3 kg (177 lb) 09/04/2023 3:01 PM MANNEQUIN COLORING ARTIST Height 167.6 cm (5' 6 ) 09/04/2023 3:01 PM MANNEQUIN COLORING ARTIST Body Mass Index 28.57 09/04/2023 3:01 PM MANNEQUIN COLORING ARTIST Plan of Treatment Health Maintenance Due Date Last Done Comments Cervical Cancer Screening Pa p Smear (Age 30 to 64) Every 3 Years 1974 Colorectal Cancer Screening Colonoscopy (10 Years) 1974 Annual Physical 1977 PHQ-2 ([place]) 1986 Hepatitis C 1992 DTaP, Tdap and Td Vaccines ( 1 - Tdap) 1993 Hepatitis B Vaccines (1 of 3 - 19+ 3-dose series) 1993 Cervical Cancer Screening Pa p with HPV Testing (Age 30 to 64) Every 5 Years 2004 Cervical Cancer Screening with HPV 2004 Mammogram Screening 09/05/2023 09/05/2021, 05/30/2016, 05/24/2016 Zoster Vaccines (1 of 2) 2024 Influenza Adult (#1) 2024 COVID-19 Vaccine Discontinued Meningococcal B Vaccine Aged Out No l onger eligible based on patient's age to complete this topic Meningococcal Vaccine Aged Out No janett james eligible based on patient's age to complete this topic Pneumococcal Vaccine: Pediatrics (0 to 5 Years) and At-Risk Patients (6 to 64 Years) Aged Out No longer eligible based on patient's age to complete this topic RSV Immunizations Under 20 Months Aged Out No longer eligible based on patient's age to complete this topic Goals Goal Patient Goal Type Associated Problems Recent Progress Patient-Stated? Author Health - patient able to perform ADLs independently General No David li, Stevenson Mcdonough landscape contractor Procedure Name Priority Date/Time Associated Diagnosis Comments MG SCREENING W RONALDO MICKIE DIGI Routine 09/05/2021 10:45 AM MANNEQUIN COLORING ARTIST Visit for screening mammogram from Last 3 Months or Most Recently Relevant to Health Maintenance Results * MG SCREENING W RONALDO MICKIE DIGI (09/05/2021 10:45 AM MANNEQUIN COLORING ARTIST) Anatomical Region Laterality Modality Breast Bilateral Mammography 09/05/2021 12:0 4 PM MANNEQUIN COLORING ARTIST Narrative 09/05/2021 12:04 PM MANNEQUIN COLORING ARTIST EXAMINATION: MG SCREENING W RONALDO MICKIE DIGI WITH TOMOSYNTHESIS AND COMPUTER-AIDED DETECTION (CAD) DATE: 09/05/2021 10:45 AM CLINICAL HISTORY: Visit for screening mammogram ?? . Family history breast CA: Aunt COMPARISON STUDIES: ??05/15/2016. FINDINGS: Bilateral CC, MLO, 2-D and 3-D acquisitions. Heterogeneously dense residual fibroglandular parenchyma unfortunately could obscure underlying lesions. Similar in appearance and distribution to the previous exams. No evidence of dominant mass, architectural distortion, skin thickening, nipple retraction or suspicious clusters of microcalcifications. Benign appearing calcifications redemonstrated. CONCLUSION: 1. ??BI-RADS Category 2 - benign findings. Annual screening mammography recommended. 2. ??BREAST TISSUE COMPOSITION: The breast tissue is heterogeneously dense, which may obscure small masses. MQSA BI-RADS Categories: Category 0 - needs additional imaging evaluation. Category 1 - negative. Category 2 - benign findings. Category 3 - probably benign findings, but short interval follow-up ?is recommended. Category 4 - suspicious abnormality and biopsy should be considered ?though the lesion may well be benign. Category 5 - highly suggestive of malignancy and appropriate action ?should be taken. ?? A) ??A negative report should not delay a biopsy if a dominant or ?clinically suspicious mass is present. B) ??Adenosis and dense breasts may obscure an underlying neoplasm. C) ??Study interpreted with computer aided detection. Voice recognition software utilized. Ordered By: JAYLIN HUNTER Interpreted By: Otilio Reinoso, 09/05/2021 12:04 PM Jaylin Hunter BINGO CLERK MAMMO Final Re sult from Last 3 Months or Most Recently Relevant to Health Maintenance Insurance [employer]ET[employer] Advance Directives * Full Code (Latest Code Status on File) Date Activated Date Inactivated Comments 04/17/2021 11:15 PM 05/02/2021 8:25 PM Care Teams Director Immunology Relationship Specialty Start Date End Date Shanice Chirinos MD [address] [place] [address] PCP - General FAMILY PRACTICE 04/17/21
--- OUTSIDE RECORDS SUMMARY | 2024-10-02 03:40 | XMS_ITS | Encounter Summary ---
Author Organization [facility] Address [address] [place] [address]. [place], [place] [address] [place] [address] Care Team Providers Care Alpine Patroller Name Role Phone Shanice Chirinos MD Primary Care Provider + Ge Hook MD Unavailable Encounter Details Date Type Department Care Team (Late st Contact Info) Description 08/24/2015 Abstract [facility] CONVERSION [id number] [place] [id number] , Generic ConversionMD Social History Tobacco Use Types Packs/Day Years Used Date Smoking Tobacco: Never Assessed Comments Unknown Sex and Gender Information Value Date Recorded Sex Assigned at Not on file Legal Sex Female 10:32 PM CDT Gender Identity Female 09/19/2021 2:14 PM SALES CONSULTANT INSURANCE Sexual Orientation Straight 09/19/2021 2: 14 PM SALES CONSULTANT INSURANCE documented as of this encounter Plan of Treatment Not on file documented as of this encounter Visit Diagnoses Not on filedocumented in this encounter Additional Health Concerns Infection Onset Date Last Indicated Resolved Time COVID-19 Confirmed Comment:Tested Positive at outside lab 04/18/2021 04/18/2021 05/13/2021 12:33 AM CDT documented as of this encounter Care Teams Alpine Patroller Relationship Specialty Start Date End Date Shanice Chirinos MD [address] [place] [address] PCP - General FAMILY PRACTICE 04/17/21 Ge Hook MD [address] [place] [address] Referring Physician ENDOCRINOLOGY 05/02/21 06/02/22 documented as of this encounter
== END 2024-09-30 21:30 | disposition home or self-care (01) ==
PROVIDERS: Emergency Provider Emergency Medicine
DX: R10.11 Right upper quadrant pain (principal); R07.9 Chest pain, unspecified; Z79.899 Other long term (current) drug therapy
CPT/HCPCS: 36415; 71275; 74177; 76705; 80053; 81003; 83690; 83735; 83880; 84484; 85025; 93005; 96361; 96374; 99284; J2405; J7030; Q9967

== ENCOUNTER 2024-10-14 09:16 | Outpatient (CLI) | payer OTHER, SELFPAY ==
--- NOTE | ~2024-10-14 | NM_ITS ---
EXAMINATION: NM hepatobiliary wo pharm DATE: 10/14/2024 12:01 INDICATION: Right upper quadrant abdominal pain COMPARISON: CT dated 09/30/2024 TECHNIQUE: 4.2 mCi Tc-99m mebrofenin (Choletec) was administered intravenously. Scintigraphic images of the abdomen were obtained for one hour. At the 1 hour time point, the patient drank 8 oz Ensure, and imaging was continued for 60 minutes. Gallbladder ejection fraction was calculated by the technol ogist. FINDINGS: There is normal clearance of radiotracer from the blood pool. There is homogeneous tracer u ptake by the liver. Activity progresses to the bowel and gallbladder. The gallbladder ejection fract ion (GBEF) is 86%. Note that with this technique, normal GBEF >= 33%. IMPRESSION: 1. Normal hepatobiliary scan. Reviewed, dictated and finalized at location A. LOSS PREVENTION MANAGER
--- OUTSIDE RECORDS SUMMARY | 2024-10-14 09:48 | XMS_ITS | Clinical Summary ---
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 Not on file Not on file Not on file Last Filed Vital Signs Vital Sign Reading Time Taken Comments Blood Pressure 131/81 09/04/2023 3:01 PM BRICKMASON CONTRACTOR Pulse 88 09/04/2023 3:01 PM BRICKMASON CONTRACTOR Temperature 36.7 ??C (98 ??F) 09/04/2023 3:01 PM BRICKMASON CONTRACTOR Respiratory Rate 18 09/04/2023 3:01 PM BRICKMASON CONTRACTOR Oxygen Saturation 98% 09/04/2023 3:01 PM BRICKMASON CONTRACTOR Inhaled Oxygen Concentration - - Weight 80.3 kg (177 lb) 09/04/2023 3:01 PM BRICKMASON CONTRACTOR Height 167.6 cm (5' 6 ) 09/04/2023 3:01 PM BRICKMASON CONTRACTOR Body Mass Index 28.57 09/04/2023 3:01 PM BRICKMASON CONTRACTOR Plan of Treatment Health Maintenance Due Date Last Done Comments Cervical Cancer Screening Pa p Smear (Age 30 to 64) Every 3 Years 1974 Colorectal Cancer Screening Colonoscopy (10 Years) 1974 Annual Physical 1977 PHQ-2 (Physician [place]) 1986 Hepatitis C 1992 DTaP, Tdap and Td Vaccines ( 1 - Tdap) 1993 Hepatitis B Vaccines (1 of 3 - 19+ 3-dose series) 1993 Cervical Cancer Screening Pa p with HPV Testing (Age 30 to 64) Every 5 Years 2004 Cervical Cancer Screening with HPV 2004 Mammogram Screening 09/05/2023 09/05/2021, 05/30/2016, 05/24/2016 Zoster Vaccines (1 of 2) 2024 Influenza Adult (#1) 2024 PHQ-2 ([facility] [place]) 09/09/2024 COVID-19 Vaccine Discontinued Meningococcal B Vaccine Aged [...] ADLs independently General No David li, Stevenson Mcdonough, sledger Procedure Name Priority Date/Time Associated Diagnosis Comments MG SCREENING W RONALDO MICKIE DIGI Routine 09/05/2021 10:45 AM BRICKMASON CONTRACTOR Visit for screening mammogram from Last 3 Months or Most Recently Relevant to Health Maintenance Results * MG SCREENING W RONALDO MICKIE DIGI (09/05/2021 10:45 AM BRICKMASON CONTRACTOR) Anatomical Region Laterality Modality Breast Bilateral Mammography 09/05/2021 12:0 4 PM BRICKMASON CONTRACTOR Narrative 09/05/2021 12:04 PM BRICKMASON CONTRACTOR EXAMINATION: MG SCREENING W RONALDO MICKIE DIGI [...] Otilio Reinoso, 09/05/2021 12:04 PM Jaylin Hunter CLAIMS ACCOUNT MANAGER MAMMO Final Re sult from Last 3 Months or Most Recently Relevant to Health Maintenance Insurance [employer]ET[employer] Advance Directives * Full Code (Latest Code Status on File) Date Activated Date Inactivated Comments 04/17/2021 11:15 PM 05/02/2021 8:25 PM Care Teams Press Operator Heavy Duty Relationship Specialty Start Date End Date Shanice Chirinos MD [facility] [address] [place], [place] [id number] PCP - General FAMILY PRACTICE 04/17/21
--- OUTSIDE RECORDS SUMMARY | 2024-10-14 09:48 | XMS_ITS | Encounter Summary ---
Author Organization [facility] Address [address] [place] [address] Care Team Providers Care Schedule Manager Name Role Phone Shanice Chirinos MD Primary Care Provider + Ge Hook MD Unavailable Encounter Details Date Type Department Care Team (Late st Contact Info) Description 06/23/2021 AddonTVt Message Enc [facility] Medical Group Diabetes [place] [address] [place] [address] Daren Sales MD RE: Question Social History [...] CDT Gender Identity Female 09/19/2021 2:14 PM CORSET FITTER Sexual Orientation Straight 09/19/2021 2: 14 PM CORSET FITTER COVID-19 Exposure Response Date Recorded In the [...] documented as of this encounter Care Teams Schedule Manager Relationship Specialty Start Date End Date Shanice Chirinos MD [address] [place] [address] PCP - General FAMILY PRACTICE 04/17/21 Ge Hook MD [address] [place] [address] Referring Physician ENDOCRINOLOGY 05/02/21 06/02/22 documented as of this encounter
--- OUTSIDE RECORDS SUMMARY | 2024-10-14 09:48 | XMS_ITS | Encounter Summary ---
Author Organization [facility] Address [address] [place] [address] Care Team Providers Care Gas Inspector Name Role Phone Shanice Chirinos MD Primary Care Provider + Ge Hook MD Unavailable Encounter Details Date Type Department Care Team (Late st Contact Info) Description 12/04/2021 MyChart Message Enc [facility] Medical Group Diabetes and Endocrinology - [place] [id number] [place] [address] Daren Sales MD continuted Social History Tobacco [...] CDT Gender Identity Female 09/19/2021 2:14 PM DIAGNOSTIC CARDIAC SONOGRAPHER Sexual Orientation Straight 09/19/2021 2: 14 PM DIAGNOSTIC CARDIAC SONOGRAPHER COVID-19 Exposure Response Date Recorded In the [...] Assessment Author Status No 05/02/2021 2:04 PM NUBIAT David Mccormack RN Active * Do you have difficulty dressing or bathing? Answer Date of Assessment Author Status No 05/02/2021 2:04 PM NUBIAT David Mccormack RN Active * Because of [...] Date Author Status No 05/02/2021 2:04 PM NUBIAT David Mccormcak RN Active documented in this encounter Plan [...] Total Score: 0 09/21/19 22 3:57 PM DIAGNOSTIC CARDIAC SONOGRAPHER documented as of this encounter Care Teams Gas Inspector Relationship Specialty Start Date End Date Shanice Chirinos MD [address] [place] [address] PCP - General FAMILY PRACTICE 04/17/21 Ge Hook MD [address] [place] [address] Referring Physician ENDOCRINOLOGY 05/02/21 06/02/22 documented as of this encounter
--- OUTSIDE RECORDS SUMMARY | 2024-10-14 09:48 | XMS_ITS | Encounter Summary ---
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
--- OUTSIDE RECORDS SUMMARY | 2024-10-14 09:48 | XMS_ITS | Encounter Summary ---
Author Organization [facility] Address [address] [place] [address] Care Team Providers Care Ferryboat Deckhand Name Role Phone Shanice Chirinos MD Primary Care Provider + Encounter Details Date Type Department Care Team (Late st Contact Info) Description 07/30/[address] [address] [facility] Patient Accounts [address] [place] [address] [facility] Provider Monthly Credit Card Payment Social [...] CDT Gender Identity Female 09/19/2021 2:14 PM IT OPERATIONS SPECIALIST Sexual Orientation Straight 09/19/2021 2: 14 PM IT OPERATIONS SPECIALIST Occupation Industry Job Start Date Job End [...] Total Score: 0 09/21/19 22 3:57 PM IT OPERATIONS SPECIALIST documented as of this encounter Care Teams Ferryboat Deckhand Relationship Specialty Start Date End Date Shanice Chirinos MD [address] [place] [id number] PCP - General FAMILY PRACTICE 04/17/21 documented as of this encounter
--- OUTSIDE RECORDS SUMMARY | 2024-10-14 09:48 | XMS_ITS | Encounter Summary ---
Author Organization [facility] Address [address] [place] [address] Care Team Providers Care Bottle House Cleaners Supervisor Name Role Phone Shanice Chirinos MD Primary Care Provider + Ge Hook MD Unavailable Encounter Details Date Type Department Care Team (Late st Contact Info) Description 06/26/[address] [facility] [address] [place] [address] Daren Sales MD Social History Tobacco Use [...] CDT Gender Identity Female 09/19/2021 2:14 PM LIMB DRIVER Sexual Orientation Straight 09/19/2021 2: 14 PM LIMB DRIVER COVID-19 Exposure Response Date Recorded In the [...] perform ADLs independently General No David wynn rStevenson RN documented as of this encounter Visit Diagnoses Diagnosis Adrenal insufficiency ([facility])- Primary Glucocorticoid deficiency documented in this encounter Additional Health Concerns Assessment Noted Time PHQ-9 Depression Total Score: 0 05/08/20 21 12:54 PM CDT documented as of this encounter Care Teams Bottle House Cleaners Supervisor Relationship Specialty Start Date End Date Shanice Chirinos MD [address] [place] [address] PCP - General FAMILY PRACTICE 04/17/21 Ge Hook MD [address] [place] [address] Referring Physician ENDOCRINOLOGY 05/02/21 06/02/22 documented as of this encounter
--- OUTSIDE RECORDS SUMMARY | 2024-10-14 09:48 | XMS_ITS | Encounter Summary ---
Author Organization [facility] Address [address] [place] [address] Care Team Providers Care Gate Shear Operator Name Role Phone Shanice Chirinos MD Primary Care Provider + Ge Hook MD Unavailable Encounter Details Date Type Department Care Team (Late st Contact Info) Description 09/18/2021 [employer] Voice[employer]t Message Enc [facility] Medical Group Diabetes and Endocrinology - [place] [address] [place] [address] Daren Sales MD Blood work Social History [...] CDT Gender Identity Female 09/19/2021 2:14 PM BUFFER INFLATED PAD Sexual Orientation Straight 09/19/2021 2: 14 PM BUFFER INFLATED PAD COVID-19 Exposure Response Date Recorded In the last month, have you been in contact with someone who was confirmed or suspected to have Coronavirus / COVID-19? No / Unsure 09/21/2021 3:52 PM BUFFER INFLATED PAD documented as of this encounter Functional Status [...] documented as of this encounter Care Teams Gate Shear Operator Relationship Specialty Start Date End Date Shanice Chirinos MD [address] [place] [address] PCP - General FAMILY PRACTICE 04/17/21 Ge Hook MD [address] [place] [address] Referring Physician ENDOCRINOLOGY 05/02/21 06/02/22 documented as of this encounter
--- OUTSIDE RECORDS SUMMARY | 2024-10-14 09:48 | XMS_ITS | Encounter Summary ---
Author Organization [facility] Address [address] [place] [address] Care Team Providers Care Blast Furnace Operator Name Role Phone Shanice Chirinos MD Primary Care Provider + Ge Hook MD Unavailable Encounter Details Date Type Department Care Team (Late st Contact Info) Description 08/24/2015 Abstract [facility] CONVERSION [address] [place], [place] [id number] , Apollo Moore MD Social History Tobacco Use Types Packs/Day Years Used Date Smoking Tobacco: Never Assessed Comments Unknown Sex and Gender Information Value Date Recorded Sex Assigned at Not on file Legal Sex Female 10:32 PM CDT Gender Identity Female 09/19/2021 2:14 PM LABORER 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 Sexual Orientation Straight 09/19/2021 2: 14 PM LABORER CHEMICAL PROCESSING documented as of this encounter Plan of Treatment Not on file documented as of this encounter Visit Diagnoses Not on filedocumented in this encounter Additional Health Concerns Infection Onset Date Last Indicated Resolved Time COVID-19 Confirmed Comment:Tested Positive at outside lab 04/18/2021 04/18/2021 05/13/2021 12:33 AM CDT documented as of this encounter Care Teams Blast Furnace Operator Relationship Specialty Start Date End Date Shanice Chirinos MD [address] [place], [place] [phone] PCP - General FAMILY PRACTICE 04/17/21 Ge Hook MD [address] [place], [place] [phone] Referring Physician ENDOCRINOLOGY 05/02/21 06/02/22 documented as of this encounter
--- OUTSIDE RECORDS SUMMARY | 2024-10-14 09:48 | XMS_ITS | Encounter Summary ---
Author Organization [facility] Address [address] [place] [address] Care Team Providers Care Jig Boring Machine Set Up Operator Name Role Phone Shanice Chirinos MD Primary Care Provider + Encounter Details Date Type Department Care Team (Late st Contact Info) Description 08/28/2022 [employer] [facility] Patient Accounts [address] [place] [address] [facility] Provider Monthly Credit Card Payment Social [...] CDT Gender Identity Female 09/19/2021 2:14 PM MEN'S AND BOYS' CLOTHING SALESPERSON Sexual Orientation Straight 09/19/2021 2: 14 PM MEN'S AND BOYS' CLOTHING SALESPERSON Occupation Industry Job Start Date Job End [...] Total Score: 0 09/21/19 22 3:57 PM MEN'S AND BOYS' CLOTHING SALESPERSON documented as of this encounter Care Teams Jig Boring Machine Set Up Operator Relationship Specialty Start Date End Date Shanice Chirinos MD [address] [place] [address] PCP - General FAMILY PRACTICE 04/17/21 documented as of this encounter
== END 2024-10-14 09:17 | disposition home or self-care (01) ==
PROVIDERS: PCP Family Medicine; Visit Provider Family Medicine
DX: R10.11 Right upper quadrant pain (principal); R14.0 Abdominal distension (gaseous)
CPT/HCPCS: 78226; A9537